=== PATIENT | female | born 1960 | race Two or more races ===

== ENCOUNTER → 2018-08-13 | Outpatient (CLI) | payer OTHER ==
--- NOTE | 2018-08-13 13:15 | Diagnostic Imaging Report ---
EXAMINATION: CT of the abdomen and pelvis without contrast. TECHNIQUE: Spiral CT images of the abdomen and pelvis were performed from the lung bases to the lesser trochanters. No intravenous contrast was given per renal stone protocol. Coronal and sagittal reformatted images were obtained. COMPARISON: None. CLINICAL HISTORY:Kidney stones DISCUSSION: ABSENCE OF INTRAVENOUS CONTRAST DECREASES SENSITIVITY FOR DETECTION OF FOCAL LESIONS AND VASCULAR PATHOLOGY. ABDOMEN/PELVIS: LOWER THORAX: Subsegmental atelectasis right lower lobe due to right hemidiaphragmatic elevation. Calcified granuloma right middle lobe. HEPATOBILIARY:Hepatic parenchyma is diffusely hypoattenuating compatible with steatosis. No focal hepatic lesion. Gallbladder has been removed. SPLEEN: No splenomegaly. PANCREAS: No focal masses or ductal dilatation. ADRENALS: No adrenal nodules. KIDNEYS/URETERS: Punctate nonobstructing right upper pole renal calculus (series 3 image 75). Dystrophic right renal cortical calcification seen on series 3 image 84 and 82. No additional upper collecting system calculi. No hydronephrosis. No ureteral calculi. PELVIC ORGANS/BLADDER: The urinary bladder is poorly distended but otherwise unremarkable. The uterus is not identified and has presumably been resected. No adnexal mass. PERITONEUM/RETROPERITONEUM: No free air or fluid. LYMPH NODES: No pelvic sidewall, retroperitoneal, or mesenteric lymphadenopathy. VESSELS: Limited evaluation without intravenous contrast. The abdominal aorta is nonaneurysmal with atherosclerotic calcification. GI TRACT: The large bowel shows no distention or wall thickening. There are a few diverticula along the descending and sigmoid colon without wall thickening or inflammation of the adjacent mesocolon. The appendix is normal. No small bowel dilatation to suggest obstruction. BONES AND SOFT TISSUES: No osseous destructive lesions. Mild degenerative disc changes and facet arthropathy of the lumbar spine. IMPRESSION: Punctate nonobstructing right renal calculus. Hepatic steatosis. Signed by: Dr. Diego Zhang M.D. on 08/13/2018 1:12 PM
== END ==
LOC: CT 11:43
PROVIDERS: ATTEND Urology
DX: N20.0 Calculus of kidney (principal); K76.0 Fatty (change of) liver, not elsewhere classified
CPT/HCPCS: 74176

== ENCOUNTER → 2018-09-01 | Day surgery (SDC) | payer OTHER ==
[2018-08-28 11:58] LABS: ANION GAP 18.9 mmol/L (8-16); CALCIUM 10.7 mg/dL (8.4-10.2); CREATININE, SERUM 1.03 mg/dL (0.57-1.11); POTASSIUM 4.9 mmol/L (3.5-5.1)
[~2018-09-01] MED LIST: B&O 60MG R/S 60 MG SUPP PR ONE; BACTRIM DS TAB1 EACH PO; CEFTRIAXONE SOD 1 GM/NS 50 ML 50 ML IV ONE; CLONAZEPAM1 MG PO; DEXAMETHASONE SOD PHOS INJ 4 MG/ML VIAL ONE; FENTANYL CITRATE/PF 100MCG/2 ML INJ ONE; IOPAMIDOL 610MG/1ML 300 MG/ML VIAL IV ONE; LIDOCAINE HCL 2% LOCAL INJ 5 ML SDV VIAL INJ ONE; LISINOPRIL10 MG PO; MELOXICAM7.5 MG PO; METFORMIN HCL500 MG PO; METOPROLOL SUCC25 MG PO; MIDAZOLAM HCL 2 MG/2 ML VIAL ONE; OLANZAPINE5 MG PO; ONDANSETRON HCL INJ 2MG/ML 2ML 2 MG/ML VIAL ONE; PROPOFOL IV EMULSION 10 MG/ML 20 ML VIAL ONE; SEVOFLURANE INHAL SOLN 250 ML PEN BTL ONE; TIZANIDINE HCL4 MG PO; TYLENOL WITH C1 EACH PO
--- OUTSIDE RECORDS SUMMARY | 2018-09-01 05:15 | XMS REPORT ---
Author Author [facility] Address Unknown Phone Unavailable Care Team Providers Care Supervisor [employer] Name Role Phone DEVIN RODRIGUEZ Unavailable Unavailable Problems This patient has no known problems. Allergies, Adverse Reactions, Alerts This patient has no known allergies or adverse reactions. Medications This patient has no known medications. Results Test Description Test Time Test Comments Text Results Atomic Results Result Comments CT ABDOMEN/PELVIS WO 2018-08-13 13:04:00 [place] [address] Patient Name: CRISTIANE VANN MR #: [id number] : 1960 Age/Sex: 57/F Req #: [id number] [facility] Physician: Ordered by: DEVIN RODRIGUEZ MD Report #: [id number] Location: CT Room/Bed: Procedure: CT/CT ABDOMEN/PELVIS WO Exam Date: 08/13/18 Exam Time: 1235 REPORT STATUS: Signed EXAMINATION: CT of the abdomen and pelvis without contrast. TECHNIQUE: Spiral CT images of the abdomen and pelvis were performed from the lung bases to the lesser trochanters. No intravenous contrast was given per renal stone protocol. Coronal and sagittal reformatted images were obtained. COMPARISON: None. CLINICAL HISTORY:Kidney stones DISCUSSION: ABSENCE OF INTRAVENOUS CONTRAST DECREASES SENSITIVITY FOR DETECTION OF FOCAL LESIONS AND VASCULAR PATHOLOGY. ABDOMEN/PELVIS: LOWER THORAX: Subsegmental atelectasis right lower lobe due to right hemidiaphragmatic elevation. Calcified granuloma right middle lobe. HEPATOBILIARY:Hepatic parenchyma is diffusely hypoattenuating compatible with steatosis. No focal hepatic lesion. Gallbladder has been removed. SPLEEN: No splenomegaly. PANCREAS: No focal masses or ductal dilatation. ADRENALS: No adrenal nodules. KIDNEYS/URETERS: Punctate nonobstructing right upper pole renal calculus (series 3 image 75). Dystrophic right renal cortical calcification seen on series 3 image 84 and 82. No additional upper collecting system calculi. No hydronephrosis. No ureteral calculi. PELVIC ORGANS/BLADDER: The urinary bladder is poorly distended but otherwise unremarkable. The uterus is not identified and has presumably been resected. No adnexal mass. PERITONEUM/RETROPERITONEUM: No free air or fluid. LYMPH NODES: No pelvic sidewall, retroperitoneal, or mesenteric lymphadenopathy. VESSELS: Limited evaluation without intravenous contrast. The abdominal aorta is nonaneurysmal with atherosclerotic calcification. GI TRACT: The large bowel shows no distention or wall thickening. There are a few diverticula along the descending and sigmoid colon without wall thickening or inflammation of the adjacent mesocolon. The appendix is normal. No small bowel dilatation to suggest obstruction. BONES AND SOFT TISSUES: No osseous destructive lesions. Mild degenerative disc changes and facet arthropathy of the lumbar sp ine. IMPRESSION: Punctate nonobstructing right renal calculus. Hepatic steatosis. Signed by: Dr. Flynn Crouch M.D. on 08/13/2018 1:12 PM Dictated By: FLYNN CROUCH MD [id number] Transcribed By: ISHMAEL on 08/13/18 1312 COPY TO: DEVIN RODRIGUEZ MD
--- OUTSIDE RECORDS SUMMARY | 2018-09-01 05:15 | XMS REPORT | Clinical Summary ---
Author Author [facility] Address Unknown Phone Unavailable Care Team Providers Care Strategy Director Name Role Phone Andra Lopes MD PCP Allergies Comments Active Allergy Reactions Severity Noted Date Duloxetine 12/26/2015 Pregabalin 12/26/2015 Morphine 12/26/2015 Medications End Date Status Medication Sig Dispensed Refills Start Date Active mirtazapine (REMERON) 30 0 MG tablet 6 Active lisinopril 0 (PRINIVIL,ZESTRIL) 20 MG 6 tablet Active metoprolol tartrate 0 (LOPRESSOR) 25 MG tablet 6 Active estradiol (VIVELLE-DOT) APPLY ONE 6 0.075 mg/24 hr PATCH TO SKIN 6 TWICE A WEEK Active CREON 6,000-19,000 TK ONE C PO 0 -30,000 unit TID 6 capsule,delayed release(DR/EC) capsule Active gemfibrozil (LOPID) 600 0 MG tablet 7 Active LINZESS 290 mcg capsule TK ONE C PO 3 QAM 30 7 MINUTES PRIOR TO FIRST MEAL Active ondansetron ODT DIS ONE T PO 0 (ZOFRAN-ODT) 4 MG Q 8 H PRN FOR 7 disintegrating tablet NAUSEA OR VOMITING Active clonAZEPAM (KlonoPIN) 1 Take 1 mg by 0 MG tablet mouth 2 (two) times a day as needed for seizures. Active Problems Problem Noted Date Irritable bowel syndrome with constipation 04/25/2016 Last Assessment & Plan: Patient with chronic constipation. Also noting abdominal pain. May be related more to IBS than pancreatitis. Will start miralax and amitiza. Will also start nortriptyline 10mg at night time Idiopathic acute pancreatitis without infection or necrosis 12/26/2015 Last Assessment & Plan: Mrs. Evans describes two distinct episodes of pancreatitis. Per her report triglycerides were >1000 on each occasion. U/s without gall stones. Latest imaging with atrophic pancreas, but no chronic pancreatitis or acute pancreatitis. She has ongoing abdominal pain, which I do not believe is from pancreatitis. At this point, i recommend evaluation with endocrinology to control lipids, as I feel this is the most likely cause of her pancreatitis. We will pursue EUS to assess for changes of chronic pancreatitis. Epigastric pain 12/26/2015 Encounters Care Team Description Date Type Specialty Marshall Busby MD Cervical pain (Primary Dx) 07/30/2018 Transcribe Access Orders Gladis Grant MD Screening for malignant neoplasm of breast (Primary Dx) 03/07/2018 Transcribe Access Orders after 08/31/2017 Family History Medical History Relation Name Comments No Known Problems Brother No Known Problems Father No Known Problems Maternal Aunt No Known Problems Maternal Grandfather No Known Problems Maternal Grandmother No Known Problems Maternal Uncle Leukemia Mother No Known Problems Paternal Aunt No Known Problems Paternal Grandfather No Known Problems Paternal Grandmother No Known Problems Paternal Uncle No Known Problems Sister Quispe's esophagus Neg Hx Breast cancer Neg Hx Celiac disease Neg Hx Cirrhosis Neg Hx Colon cancer Neg Hx Colon polyps Neg Hx Crohn's disease Neg Hx Cystic fibrosis Neg Hx Eating disorder Neg Hx Esophageal cancer Neg Hx GERD Neg Hx HERB DIGGER Cancer Neg Hx Hemochromatosis Neg Hx Inflammatory bowel Neg Hx disease Irritable bowel syndrome Neg Hx Liver cancer Neg Hx Liver disease Neg Hx Pancreatic cancer Neg Hx Pancreatitis Neg Hx Rectal cancer Neg Hx Stomach cancer Neg Hx Ulcerative colitis Neg Hx Relation Name Status Comments Brother Father Alive Maternal Aunt Maternal Grandfather Maternal Grandmother Maternal Uncle Mother Paternal Aunt Paternal Grandfather Paternal Grandmother Paternal Uncle Sister Social History Date Tobacco Use Types Packs/Day Years Used Never Smoker Smokeless Tobacco: Never Used Alcohol Use Drinks/Week oz/Week Comments No Sex Assigned at Date Recorded Not on file Industry Job Start Date Occupation Not on file Not on file Not on file Travel End Travel History Travel Start No recent travel history available. Last Filed Vital Signs Not on file Plan of Treatment Health Maintenance Due Date Last Done Comments COLONOSCOPY SCREENING 2010 SHINGLES VACCINES (#1) 2010 INFLUENZA VACCINE 2018 BREAST CANCER SCREENING 02/08/2019 02/08/2017 Procedures Comments Procedure Name Priority Date/Time Associated Diagnosis MRI CERVICAL SPINE WO Routine 08/11/2018 Cervical pain CONTRAST 2:01 PM CDT after 08/31/2017 Results * MRI Cervical Spine Wo Contrast (08/11/2018 2:01 PM CDT) Specimen Narrative Performed At [facility] EXAMINATION:MRI CERVICAL SPINE WO CONTRAST CLINICAL HISTORY:M54.2 Cervicalgia, cervical pain COMPARISON:None TECHNIQUE:Multiplanar multisequence images were obtained through the cervical spine including the following pulse sequences, sagittal T2, sagittal STIR, sagittal T1, axial T2 FSE and T2 gradient echo. DISCUSSION: There is normal alignment of the cervical spine There is no evidence of expansile or destructive osseous lesions. Normal bone marrow signal intensity on T1 WI. The visualized posterior fossa and craniocervical junction are unremarkable. The cervical cord is normal in size and signal intensity. There is no evidence of intra or extradural mass or collection. The pre and paravertebral soft tissues are unremarkable. Evaluation of individual intervertebral disc demonstrate the following findings: - C1-C2: Degenerative thickening of tectorial membrane and atlantodental ligamental apparatus , there is no significant central spinal canal stenosis or cord compression. Unremarkable bilateral atlantoaxial and atlantooccipital joints. - C2-C3: Mild facet arthropathy. No significant posterior disc disease, spinal canal or neural foraminal stenosis. - C3-C4: Anterior spondylosis and posterior disc bulge. Both facet arthropathy. The central canal and neuroforamina are patent. - C4-C5: Anterior spondylosis and shallow left paracentral disc protrusion remodeling the ventral thecal sac. Left uncovertebral and facet arthropathy resulting in mild narrowing of left neural foramen. The central canal and right neuroforamen are patent. - C5-C6: Posterior disc protrusion resulting in [id number] central canal stenosis. Bilateral uncovertebral and facet arthropathy resulting in mild narrowing of the neural foramina. - C6-C7: Anterior spondylosis and posterior disc protrusion resulting in mild narrowing of the central canal. Bilateral facet arthropathy. The neural foramina are patent. - C7-T1: Anterior spondylosis and posterior disc bulge. Bilateral facet arthropathy. The central canal and neuroforamina are patent. IMPRESSION: Multilevel degenerative disc disease, uncovertebral and facet arthropathy resulting in the following findings: - C4-C5, left paracentral disc protrusion remodeling the ventral thecal sac and mild narrowing of left neural foramen. - C5-C6, shallow posterior disc protrusion resulting in mild to moderate narrowing of the central canal. Bilateral uncovertebral and facet arthropathy resulting in mild neural from stenosis. - C6-C7, posterior disc protrusion resulting in mild narrowing of the central canal. [id number] Procedure Note Hm Interface, Radiology Results Incoming - 08/11/2018 3:42 PM CDT EXAMINATION: MRI CERVICAL SPINE WO CONTRAST CLINICAL HISTORY: M54.2 Cervicalgia, cervical pain COMPARISON: None TECHNIQUE: Multiplanar multisequence images were obtained through the cervical spine including the following pulse sequences, sagittal T2, sagittal STIR, sagittal T1, axial T2 FSE and T2 gradient echo. DISCUSSION: There is normal alignment of the cervical spine There is no evidence of expansile or destructive osseous lesions. Normal bone marrow signal intensity on T1 WI. The visualized posterior fossa and craniocervical junction are unremarkable. The cervical cord is normal in size and signal intensity. There is no evidence of intra or extradural mass or collection. The pre and paravertebral soft tissues are unremarkable. Evaluation of individual intervertebral disc demonstrate the following findings: - C1-C2: Degenerative thickening of tectorial membrane and atlantodental ligamental apparatus , there is no significant central spinal canal stenosis or cord compression. Unremarkable bilateral atlantoaxial and atlantooccipital joints. - C2-C3: Mild facet arthropathy. No significant posterior disc disease, spinal canal or neural foraminal stenosis. - C3-C4: Anterior spondylosis and posterior disc bulge. Both facet arthropathy. The central canal and neuroforamina are patent. - C4-C5: Anterior spondylosis and shallow left paracentral disc protrusion remodeling the ventral thecal sac. Left uncovertebral and facet arthropathy resulting in mild narrowing of left neural foramen. The central canal and right neuroforamen are patent. - C5-C6: Posterior disc protrusion resulting in [id number] central canal stenosis. Bilateral uncovertebral and facet arthropathy resulting in mild narrowing of the neural foramina. - C6-C7: Anterior spondylosis and posterior disc protrusion resulting in mild narrowing of the central canal. Bilateral facet arthropathy. The neural foramina are patent. - C7-T1: Anterior spondylosis and posterior disc bulge. Bilateral facet arthropathy. The central canal and neuroforamina are patent. IMPRESSION: Multilevel degenerative disc disease, uncovertebral and facet arthropathy resulting in the following findings: - C4-C5, left paracentral disc protrusion remodeling the ventral thecal sac and mild narrowing of left neural foramen. - C5-C6, shallow posterior disc protrusion resulting in mild to moderate narrowing of the central canal. Bilateral uncovertebral and facet arthropathy resulting in mild neural from stenosis. - C6-C7, posterior disc protrusion resulting in mild narrowing of the central canal. [id number] Performing Organization Address City/State/Zipcode Phone Number [facility] [address] [place] [address] after 08/31/2017 Insurance Type Payer Benefit Subscriber ID Effective Phone Address Plan / Dates Group HMO AETNA AETNA xxxxxxxxxx [id number] HMO,POS,EP resent O, [employer] (Home) [place] [address] Advance Directives Patient has advance care planning documents on file. For more information, marlo elise contact: Butch Green [address] [place] [address]
[2018-09-01 08:25] VITALS: BP 123/72
--- NOTE | 2018-10-10 02:23 | Operative Report ---
DATE OF PROCEDURE: 09/01/2018 SURGEON: Martín Abbott MD PREOPERATIVE DIAGNOSES: 1. Interstitial cystitis. 2. Urinary tract infections. 3. Microhematuria. POSTOPERATIVE DIAGNOSES: 1. Interstitial cystitis. 2. Urinary tract infections. 3. Microhematuria. 4. Urethral stenosis. 5. Grade 3 rectocele. 6. Grade 1 cystocele. 7. Atrophic (senile) vaginitis. OPERATIONS PERFORMED: 1. Cystourethroscopy with calibration and dilation of urethral stenosis (separate procedure performed for the diagnosis of stenosis). 2. Cystourethroscopy with bilateral ureteral catheterization and retrograde ureteropyelography (separate procedure performed for the hematuria and urinary tract infections). 3. Interpretation of retrograde ureteropyelography. 4. Supervision of fluoroscopy, no radiologist present. 5. Cystourethroscopy with hydrodistention (separate procedure performed for interstitial cystitis). 6. Pelvic examination under anesthesia. ANESTHESIA: General. COMPLICATIONS: None. CLINICAL SUMMARY: Dayanna Evans is a 57-year-old woman with the above preoperative diagnoses. She is brought for the above procedures. She is aware of the risks of bleeding, infection, injury to adjacent structures, need for additional procedures and elected to proceed. OPERATIVE PROCEDURE IN DETAIL: Informed consent was verified. Dayanna Evans was properly identified, taken to the operating room, placed on the cystoscopy table in supine position. Anesthesia was uneventfully begun. The patient was then carefully gently repositioned in the dorsal lithotomy position with all pressure points well padded. Her genitalia were prepared and draped in usual sterile fashion. A 22.5-Faroese cystoscope sheath with obturator in place could not be placed in the patient's urethra due to the urethral stenosis. The urethra was calibrated to 16-Faroese in size and progressively dilated to 26-Faroese in size. We were then easily able to place the cystoscope sheath into the patient's urethra and the bladder was drained. Panendoscopy of the bladder revealed no suspicious mucosal lesions, no tumors, no stones, and no diverticula, normally positioned configured ureteral orifices were identified. An 8-Faroese catheter was used to cannulate each ureter and a retrograde ureteral pyelograms were performed. Interpretation of retrograde ureteropyelography contrast was instilled in retrograde fashion bilaterally. There were no tumors, no stones, and no diverticula. Unobstructed drainage was observed bilaterally fluoroscopically. Hydrodistention was then carried out to 80 cm of water height and held in place for exactly 2 minutes by the clock. This revealed a bladder capacity under anesthesia of only 700 mL. There was barely pink efflux at the end of drainage. Panendoscopy of the urinary bladder revealed glomerulations throughout the bladder. There were no Hunner's ulcers. The patient's bladder was drained. Cystoscope was withdrawn. Pelvic examination under anesthesia revealed a grade 3 rectocele and grade 1 cystocele. There was atrophic vaginitis. No abnormal palpable pelvic masses could be appreciated. There were no obvious mucosal lesions. The patient was then uneventfully reversed from anesthesia and taken to recovery room in stable condition. There were no complications at the end of the procedure. She tolerated the procedure well. Explicit postoperative instructions were given. We will follow the patient up in the office. MD GUS Blake/LILIAN /[id number]
== END | disposition home or self-care (01) ==
LOC: OR 05:11
PROVIDERS: ATTEND Urology
DX: N30.10 Interstitial cystitis (chronic) without hematuria (principal); N35.92 Unspecified urethral stricture, female; N81.6 Rectocele; N81.10 Cystocele, unspecified; N95.2 Postmenopausal atrophic vaginitis; I10 Essential (primary) hypertension; E11.9 Type 2 diabetes mellitus without complications; K58.9 Irritable bowel syndrome, unspecified; M54.2 Cervicalgia; F41.9 Anxiety disorder, unspecified; F32.9 Major depressive disorder, single episode, unspecified; Z01.810 Encounter for preprocedural cardiovascular examination; Z01.812 Encounter for preprocedural laboratory examination
CPT/HCPCS: 36415 ×2; 52260; 74420; 80048; 82948; 93005; C1758; J0696; J1100; J2001; J2250; J2405; J2704; Q9967; J3010

== ENCOUNTER → 2019-10-12 | Outpatient (CLI) | payer OTHER ==
[~2019-10-12] MED LIST changes: -B&O 60MG R/S 60 MG SUPP PR ONE; -CEFTRIAXONE SOD 1 GM/NS 50 ML 50 ML IV ONE; -DEXAMETHASONE SOD PHOS INJ 4 MG/ML VIAL ONE; -FENTANYL CITRATE/PF 100MCG/2 ML INJ ONE; -IOPAMIDOL 610MG/1ML 300 MG/ML VIAL IV ONE; -LIDOCAINE HCL 2% LOCAL INJ 5 ML SDV VIAL INJ ONE; -MIDAZOLAM HCL 2 MG/2 ML VIAL ONE; -ONDANSETRON HCL INJ 2MG/ML 2ML 2 MG/ML VIAL ONE; -PROPOFOL IV EMULSION 10 MG/ML 20 ML VIAL ONE; -SEVOFLURANE INHAL SOLN 250 ML PEN BTL ONE
--- NOTE | 2019-10-12 12:25 | Diagnostic Imaging Report ---
Exam: KUB - 2 views Indication: Urinary tract infection Comparison: CT abdomen and pelvis of 08/13/2018 Findings: No definite radiographically apparent urinary calculi. Nonobstructive bowel gas pattern. No free air. Status post cholecystectomy. Numerous phleboliths in the pelvis. Mild degenerative changes of both hip joints. Impression: No definite radiographically apparent urinary calculi. Signed by: Marycarmen Jennings MD on 10/12/2019 12:22 PM
--- NOTE | 2019-10-12 13:12 | Diagnostic Imaging Report ---
EXAM: Renal Ultrasound INDICATION: ^URINARY TRACT INFECTION COMPARISON: CT abdomen and pelvis of 08/13/2018, KUB 10/12/2019 TECHNIQUE: Transverse and longitudinal images of the kidneys and bladder were obtained. FINDINGS: Right Kidney: Length: 10.3 cm Appearance: Normal echogenicity. Collecting system: No hydronephrosis Stones: 8 mm mid pole calcification Cyst/Mass: None Left Kidney: Length: 12.1 cm Appearance: Normal echogenicity. Collecting system: No hydronephrosis Stones: None Cyst/Mass: None Bladder: No mass or calculus. Prevoid volume estimate of 386 cc. Postvoid images show residual volume of 17 cc. IMPRESSION: 8mm right midpole calcification most likely corresponds with the area of curvilinear calcification seen on the CT of 08/13/2018. Pre and post void bladder volumes as above. Signed by: Marycarmen Jennings MD on 10/12/2019 1:09 PM
== END ==
LOC: US 11:30
PROVIDERS: ATTEND Urology
DX: N39.0 Urinary tract infection, site not specified (principal)
CPT/HCPCS: 74018; 76770; 76857